=== PATIENT | female | born 1950 | race Caucasian/White ===

== ENCOUNTER 2020-02-03 11:09 | Emergency (ER) | payer MEDICARE, OTHER, SELFPAY ==
[2020-02-03 11:25] VITALS: BP 123/61; PULSE 66; RESP 16; TEMP 37.1; O2SAT 99
--- NOTE | 2020-02-03 11:41 | ED.GENADULT ---
HPI - General Adult General Chief complaint: Extremity Injury, Lower Stated complaint: redness right foot Time Seen by Provider: 02/03/20 11:41 Source: patient and RN notes reviewed Mode of arrival: ambulatory Limitations: no limitations and clinical condition History of Present Illness HPI narrative: 69-year-old female presents with complaints of a puncture wound to the plantar of RT foot with tenderness and swelling to area for 1 day. Neosporin and band aid with some relief. Sherrie says she stepped on a nail (had sandals on) while looking at a condo on 02/02/20. No erythema. Denies drainage. No streaking. No numbness or tingling, or loss of mobility. Exacerbating factor consist of applying weight and palpation of area. Denies fever or chills. Denies nausea, vomiting, and abdominal pain. Remains active. Some parts of this dictation were generated by voice recognition software and may contain typographical and/or grammatical inaccuracies. Related Data Home Medications Medication Instructions Recorded Confirmed folic acid 02/03/20 infliximab 02/03/20 sulfasalazine 02/03/20 venlafaxine 02/03/20 Allergies Allergy/AdvReac Type Severity Reaction Status Date / Time Sulfa (Sulfonamide Allergy Rash Verified 02/03/20 11:35 Antibiotics) Review of Systems Review of Systems: Narrative: CONSTITUTIONAL: Denies fever, chills, sweats. EYES: Denies visual changes, redness, discharge. ENT: Denies rhinorrhea, congestion, sore throat, otalgia. CARDIOVASCULAR: Denies chest pain, palpitations, edema. RESPIRATORY: Denies dyspnea, wheezing, cough. GASTROINTESTINAL: Denies abdominal pain, nausea, vomiting, diarrhea. GENITOURINARY: Denies dysuria, hematuria, abnormal discharge SKIN: Complains of nail puncture site to plantar of RT foot with tenderness and swelling. Denies erythema and drainage. MUSCULOSKELETAL: Denies acute back pain, joint pain, or myalgia. NEUROLOGIC: Denies numbness or focal weakness. PSYCHIATRIC: Denies anxiety or depression. [facility] Past Medical History Medical History (Updated 02/03/20 @ 12:01 by KAREN Allred) Crohn's disease Surgical History Surgical History (Updated 02/03/20 @ 11:52 by KAREN Allred) History of intestinal surgery 2 small bowel surgeries history of Crohn's History of knee surgery Right knee for meniscus History of shoulder surgery Left History of spinal surgery L5-S1 Family History Family History (Updated 02/03/20 @ 11:53 by KAREN Allred) Father Leukemia Mother Alive and well Social History Social History (Updated 02/03/20 @ 11:53 by KAREN Allred) Smoking status: Never smoker Second hand tobacco smoke exposure: No Alcohol intake: current Alcohol use details: Occasional Substance use: never Living arrangements: with family Occupation/Education: retired Gender identity (if verbalized by the patient): Female Comments At time of signature, agree with nurse past medical, surgical, social, and family history. There is no relevant family history pertinent to the presenting complaint. Exam Narrative: Exam Narrative: GENERAL: This is a well-nourished, well-developed patient, in no apparent distress. Talks in full sentences and ambulates with steady gait without dyspnea. HEAD: normocephalic, atraumatic. EYES: PERRL. Sclera clear/white. Vision is grossly intact. CARDIOVASCULAR: Regular rate and rhythm without murmurs, gallops, or rubs. RESPIRATORY: Clear to auscultation. Breath sounds equal bilaterally. No wheezes, rales, or rhonchi. GASTROINTESTINAL: Abdomen soft, non-tender, nondistended. Bowel sounds are active. No hepato-splenomegaly, or palpable masses. No guarding. SKIN: warm, RT plantar foot 4th metatarsal head (area below 4th toe) with 0.2cm closed puncture wound with tenderness on palpation, no drainage, warmth, redness, or significant swelling. No concern for Cellulit
[2020-02-03] MEDS: TETANUS,DIPHTHERIA,AC PERTUSSIS ADULT (0.5 ML) BOOSTRIX IM (11:59)
== END 2020-02-03 12:21 | disposition home or self-care (01) ==
PROVIDERS: Emergency Provider Nurse Practitioner Family; PCP Internal Medicine Endocrinology, Diabetes & Metabolism
DX: S91.331A Puncture wound without foreign body, right foot, initial encounter (principal); W45.0XXA Nail entering through skin, initial encounter; Z23 Encounter for immunization; K50.90 Crohn's disease, unspecified, without complications
CPT/HCPCS: 90471; 90715; 99202; G0463

== ENCOUNTER 2023-10-11 13:24 | Outpatient (CLI) | payer SELFPAY ==
--- NOTE | ~2023-10-11 | XR_ITS ---
EXAMINATION:XR cervical spine 4-5V DATE: 10/11/2023 13:56 INDICATION: Neck pain TECHNIQUE: AP, lateral in neutral, flexion, extension, lateral swimmers and odontoid views of the cer vical spine are provided. COMPARISON: None FINDINGS: Bone alignment is normal. There is no hypermobility with flexion or extension. There is foc al kyphosis of the cervical spine centered at C5-6. The odontoid process is intact. No fracture is id entified. The vertebral body heights are normal. There is moderate loss of intervertebral disc space height at C4-5, C5-C6, and C6-7. Small degenerative osteophytes project from the anterior endplates o f multiple vertebral bodies. 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 Prevertebral soft tissues are normal. IMPRESSION: 1. Moderate cervical spondylosis without acute findings. Reviewed, dictated and finalized at location F. [facility] [facility]
== END 2023-10-11 13:25 ==
PROVIDERS: PCP Chiropractor; Visit Provider Chiropractor
DX: M54.2 Cervicalgia (principal); M43.02 Spondylolysis, cervical region
CPT/HCPCS: 72050